=== PATIENT | female | born 2005 | race Caucasian/White ===

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

== ENCOUNTER → 2024-09-24 | Outpatient (CLI) | payer OTHER | END | disposition home or self-care (01) | LOC: LABWHC1 13:10 | PROVIDERS: ATTEND Obstetrics & Gynecology | DX: O20.0 Threatened abortion (principal); Z3A.00 Weeks of gestation of pregnancy not specified | CPT/HCPCS: 36415; 84702 ==

== ENCOUNTER 2024-10-25 21:28 | Emergency (ER) | payer OTHER ==
--- NOTE | 2024-10-25 22:03 | ED ---
Abdominal Pain HPI - General Source: patient, RN notes reviewed Mode of arrival: ambulatory Limitations: no limitations - History of Present Illness MD Complaint: abdominal pain Onset/Timin -: days(s) Location: LLQ, RLQ Radiation: none Severity scale (1-10): 7 Consistency: intermittent Worsens With: bowel movement Associated Symptoms: nausea, hematochezia <Janes Frost - Last Filed: 10/25/24 23:57> <Brittany Jean-Baptiste - Last Filed: 10/26/24 02:32> - General Chief Complaint: Abdominal Pain Stated Complaint: 12 weeks preg,bloody stool,abd Pain Time Seen by Provider: 10/25/24 21:42 - History of Present Illness Initial Comments: This is a G2, , 12-week , 19-year-old female presenting for abdominal pain with blood in the stool starting earlier today. Patient states she began having lower abdominal pain, noticing bright red blood in her stool afterwards. Patient states that this has been recurring all day with intermittent pain that worsens just prior to, during and immediately following the bowel movements. Patient denies history of similar symptoms in the past endorses associated nausea. Denies complications with first . Endorses migraines, syncopal episodes and momentary periods of vision loss during this . Denies fever, chills, chest pain, dyspnea, vomiting, melena, vaginal bleeding/discharge, dysuria, hematuria. (Janes Frost) - Related Data Previous Rx's Medication Instructions Recorded Xbp-Ppur-Vcmqg Acid 1 each PO DAILY #30 cap 11/23/21 [-U Capsule] Acetaminophen Tab [Tylenol] 650 mg PO Q6H PRN #30 tab 04/25/22 Ibuprofen [Motrin] 600 mg PO Q6HR PRN #30 tab 04/25/22 Allergies Allergy/AdvReac Type Severity Reaction Status Date / Time No Known Allergies Allergy Verified 10/25/24 21:33 Review of Systems ROS Other: All systems not noted in ROS Statement are negative. <Janes Frost - Last Filed: 10/25/24 23:57> ROS Other: All systems not noted in ROS Statement are negative. <Brittany Jean-Baptiste - Last Filed: 10/26/24 02:32> ROS Statement: Those systems with pertinent positive or pertinent negative responses have been documented in the HPI. Past Medical History Past Medical History: No Reported History History of Any Multi-Drug Resistant Organisms: None Reported Past Surgical History: No Surgical Hx Reported Past Anesthesia/Blood Transfusion Reactions: No Reported Reaction Past Psychological History: No Psychological Hx Reported Smoking Status: Never smoker Past Alcohol Use History: None Reported Past Drug Use History: None Reported - Past Family History Father Family Medical History: Hypertension <SantoshJanes Last Filed: 10/25/24 23:57> General Exam Limitations: no limitations General appearance: alert, in no apparent distress Head exam: Present: atraumatic, normocephalic, normal inspection Eye exam: Present: normal appearance, PERRL, EOMI. Absent: scleral icterus, conjunctival injection, periorbital swelling ENT exam: Present: normal exam, mucous membranes moist Neck exam: Present: normal inspection. Absent: tenderness, meningismus, lymphad enopathy Respiratory exam: Present: normal lung sounds bilaterally. Absent: respiratory distress, wheezes, rales, rhonchi, stridor Cardiovascular Exam: Present: regular rate, normal rhythm, normal heart sounds. Absent: systolic murmur, diastolic murmur, rubs, gallop, clicks GI/Abdominal exam: Present: soft, tenderness (Positive right adnexal, suprapubic and epigastric TTP without guarding.), normal bowel sounds. Absent: distended, guarding, rebound, rigid Extremities exam: Present: normal inspection, full ROM, normal capillary refill. Absent: tenderness, pedal edema, joint swelling, calf tenderness Back exam: Present: normal inspection Neurological exam: Present: alert, oriented X3, CN II-XII intact Psychiatric exam: Present: normal affect, normal mood Skin exam: Present: warm, dry, intact, normal color. Absent: rash <Henrry Frostling - Last Filed: 10/25/24 23:57> Course Vital Signs 10/25/24 10/26/24 21:30 01:57 Temperature 97.6 F 98.4 F Pulse Rate 71 53 L Respiratory 18 16 Rate Blood Pressure 137/87 111/74 O2 Sat by Pulse 100 100 Oximetry Medical Decision Making - Lab Data Result diagrams: 10/25/24 23:12 <Henrry Frostling Last Filed: 10/25/24 23:57> - Lab Data Result diagrams: 10/25/24 23:12 10/25/24 23:12 <Brittany Jean-Baptiste - Last Filed: 10/26/24 02:32> - Medical Decision Making Was pt. sent in by a medical professional or institution ([facility] Coffey, [employer] FURNACE OPERATOR, urgent care, hospital, or [place] health care facility...) When possible be specific @ -[No] Did you speak to anyone other than the patient for history (EMS, parent, family, police, friend...)? What history was obtained from this source @ -[No] Did you review nursing and triage notes (agree or disagree)? Why? @ -[I reviewed and agree with nursing and triage notes] Were old charts reviewed (outside hosp., previous admission, EMS record, old EKG, old radiological studies, urgent care reports/EKG's, [place] health care facility records)? Report findings @ -[No old charts were reviewed] Differential Diagnosis (chest pain, altered mental status, abdominal pain women, abdominal pain men, vaginal bleeding, weakness, fever, dyspnea, syncope, headache, dizziness, GI bleed, back pain, seizure, CVA, palpatations, mental health, musculoskeletal)? @ -Differential Abdominal Pain Women: Appendicitis, Cholecystitis, diverticulosis, ischemic bowel, pancreatitis, hepa titis, UTI, gastroenteritis, AAA, incarcerated hernia, bowel obstruction, constipation, inflammatory bowel, hepatitis, peptic ulcer disease, splenic infarction, perforated viscus, vulvitis, ovarian torsion, PID, kidney stone, placenta abruption, this is not meant to be an all-inclusive list EKG interpreted by me (3pts min.). @ -Not done X-rays interpreted by me (1pt min.). @ -[None done] CT interpreted by me (1pt min.). @ -[None done] U/S interpreted by me (1pt. min.). @ - ultrasound results pending What testing was considered but not performed or refused? (CT, X-rays, U/S, labs)? Why? @ -[None] What meds were considered but not given or refused? Why? @ -[None] Did you discuss the management of the patient with other professionals (professionals i.e. [facility] Coffey, E[employer] FURNACE OPERATOR, lab, RT, psych nurse, social sciences research scientist, transportation job titles, teacher, radio division officer, continuous pillowcase cutter)? Give summary @ -[No] Was smoking cessation discussed for >3mins.? @ -[No] Was critical care preformed (if so, how long)? @ -[No] Were there social determinants of health that impacted care today? How? (Homelessness, low income, unemployed, alcoholism, drug addiction, transportation, low edu. Level, literacy, decrease access to med. care, penitentiary, rehab)? @ -[No] Was there de-escalation of care discussed even if they declined (Discuss DNR or withdrawal of care, Hospice)? DNR status @ -[No] What co-morbidities impacted this encounter? (DM, HTN, Smoking, COPD, CAD, Cancer, CVA, ARF, Chemo, Hep., AIDS, mental health diagnosis, sleep apnea, morbid obesity)? @ -[None] Was patient admitted / discharged? Hospital course, mention meds given and route, prescriptions, significant lab abnormalities, going to OR and other pertinent info. @ -[hospital course] Undiagnosed new problem with uncertain prognosis? @ -[No] Drug Therapy requiring intensive monitoring for toxicity (Heparin, Nitro, Insulin, Cardizem)? @ -[No] Were any procedures done? @ -[No] Diagnosis/symptom? @ -[default] Acute, or Chronic, or Acute on Chronic? @ -Acute Uncomplicated (without systemic symptoms) or Complicated (systemic symptoms)? @ -Complicated Side effects of treatment? @ -[No] Exacerbation, Progression, or Severe Exacerbation? @ -[No] Poses a threat to life or bodily function? How? (Chest pain, [place], [place], pneumonia, PE, COPD, DKA, ARF, appy, cholecystitis, CVA, Diverticulitis, Homicidal, Suicidal, threat to staff... and all critical care pts) @ -[No] (Janes Frost) Was patient admitted / discharged? Hospital course, mention meds given and route, prescriptions, significant lab abnormalities, going to OR and other perti nent info. @Discharged-Patient discussed with and signed out to myself by outgoing BIBI. Briefly she is a 19-year-old female, 12 weeks presenting for bright red blood per rectum. Vital signs stable on arrival. Hemoglobin is stable and within normal limits. Ultrasound pending. Ultrasound shows 12-week 1 day old fetus, heart rate 160, noted an anechoic area along with placenta that is a possible placental fonseca. Updated patient to today's findings, discussed importance following up with her tubing drier regarding this, additionally discussed the importance of increased fiber intake, fluid intake and Dulcolax as needed for stool softener, due to suspected constipation causing hemorrhoids and rectal bleeding. Patient was instructed to be on pelvic rest and to return to the ER immediately should she experience any vaginal bleeding. Pt verbalized understanding and was discharged in good condition. In my medical judgment there is currently no evidence of an immediate life- threatening or surgical condition. Discharge is therefore indicated at this time. Discharge treatment instructions, follow up instructions, and appropriate emergency department return precautions were discussed with the patient and/or medical decision maker. Patient and/or medical decision maker expressed understanding of and agreed with the treatment plan, follow up instructions, and emergency department return precaution. All patient's and/or medical decision maker's questions were answered. The patient was instructed to return to the ED for any changes in symptoms, persistent symptoms, inability to obtain proper follow-up or for any further concerns. Patient received verbal and written instructions for this condition. Undiagnosed new problem with uncertain prognosis? @ -No Drug Therapy requiring intensive monitoring for toxicity (Heparin, Nitro, Insulin, Cardizem)? @ -No Were any procedures done? @ -No Diagnosis/symptom? @Hematochezia Acute, or Chronic, or Acute on Chronic? @ -Acute Uncomplicated (without systemic symptoms) or Complicated (systemic symptoms)? @ -Complicated Side effects of treatment? @ -No Exacerbation, Progression, or Severe Exacerbation? @ -No Poses a threat to life or bodily function? How? (Chest pain, [place], [place], pneumonia, PE, COPD, DKA, ARF, appy, cholecystitis, CVA, Diverticulitis, Homicidal, Suicidal, threat to staff... and all critical care pts) @ -No (,Brittany) - Lab Data Lab Results 10/25/24 10/25/24 10/25/24 Range/Units 23:12 23:12 23:12 WBC 9.70 (4.50-10.00) 10*3/uL RBC 4.79 (4.10-5.20) 10*6/uL Hgb 14.7 (12.0-15.0) g/dL Hct 41.4 (37.2-46.3) % MCV 86.4 (80.0-97.0) fL MCH 30.7 (27.0-32.0) pg MCHC 35.5 (32.0-37.0) g/dL Plt Count 185 (140-440) 10*3/uL MPV 12.8 H (9.5-12.2) fL Immature Gran % (Auto) 0.3 % Neutrophils % 61.1 % Lymphocytes % 29.0 % Monocytes % 8.6 % Eosinophils % 0.5 % Basophils % 0.5 % Immature Gran # 0.03 (0.00-0.04) 10*3/uL Neutrophils # 5.93 (1.80-7.70) 10*3/uL Lymphocytes # 2.81 (0.90-5.00) 10*3/uL Monocytes # 0.83 (0.20-1.00) 10*3/uL Eosinophils # 0.05 (0.04-0.35) 10*3/uL Basophils # 0.05 (0.00-0.10) 10*3/uL Sodium 135 L (137-145) mmol/L Potassium 3.8 (3.5-5.1) mmol/L Chloride 102 (98-107) mmol/L Carbon Dioxide 22 (22-30) mmol/L Anion Gap 11 mmol/L BUN 5 L (7-17) mg/dL Creatinine 0.54 (0.52-1.04) mg/dL Est GFR (CKD-EPI)AfAm >90 (>60 ml/min/1.73 sqM) Est GFR (CKD-EPI)NonAf >90 (>60 ml/min/1.73 sqM) Glucose 85 (74-99) mg/dL Calcium 9.6 (8.4-10.2) mg/dL Total Bilirubin 0.5 (0.2-1.3) mg/dL AST 19 (14-36) U/L ALT 12 (4-34) U/L Alkaline Phosphatase 41 (38-126) U/L Total Protein 6.6 (6.3-8.2) g/dL Albumin 4.2 (3.5-5.0) g/dL Lipase 91 (23-300) U/L HCG, Quant 73744.3 mIU/mL Urine Color Urine Appearance (Clear) Urine pH (5.0-8.0) Ur Specific [place] (1.001-1.035) Urine Protein (Negative) Urine Glucose (UA) (Negative) Urine Ketones (Negative) Urine Blood (Negative) Urine Nitrite (Negative) Urine Bilirubin (Negative) Urine Urobilinogen (<2.0) mg/dL Ur Leukocyte Esterase (Negative) Stool Occult Blood (Negative) Blood Type O Positive Blood Type Recheck O Pos Bld Type Recheck Status No 10/25/24 10/26/24 Range/Units 23:12 00:15 WBC (4.50-10.00) 10*3/uL RBC (4.10-5.20) 10*6/uL Hgb (12.0-15.0) g/dL Hct (37.2-46.3) % MCV (80.0-97.0) fL MCH (27.0-32.0) pg MCHC (32.0-37.0) g/dL Plt Count (140-440) 10*3/uL MPV (9.5-12.2) fL Immature Gran % (Auto) % Neutrophils % % Lymphocytes % % Monocytes % % Eosinophils % % Basophils % % Immature Gran # (0.00-0.04) 10*3/uL Neutrophils # (1.80-7.70) 10*3/uL Lymphocytes # (0.90-5.00) 10*3/uL Monocytes # (0.20-1.00) 10*3/uL Eosinophils # (0.04-0.35) 10*3/uL Basophils # (0.00-0.10) 10*3/uL Sodium (137-145) mmol/L Potassium (3.5-5.1) mmol/L Chloride (98-107) mmol/L Carbon Dioxide (22-30) mmol/L Anion Gap mmol/L BUN (7-17) mg/dL Creatinine (0.52-1.04) mg/dL Est GFR (CKD-EPI)AfAm (>60 ml/min/1.73 sqM) Est GFR (CKD-EPI)NonAf (>60 ml/min/1.73 sqM) Glucose (74-99) mg/dL Calcium (8.4-10.2) mg/dL Total Bilirubin (0.2-1.3) mg/dL AST (14-36) U/L ALT (4-34) U/L Alkaline Phosphatase (38-126) U/L Total Protein (6.3-8.2) g/dL Albumin (3.5-5.0) g/dL Lipase (23-300) U/L HCG, Quant mIU/mL Urine Color Colorless Urine Appearance Clear (Clear) Urine pH 6.5 (5.0-8.0) Ur Specific [place] 1.010 (1.001-1.035) Urine Protein Negative (Negative) Urine Glucose (UA) Negative (Negative) Urine Ketones Negative (Negative) Urine Blood Negative (Negative) Urine Nitrite Negative (Negative) Urine Bilirubin Negative (Negative) Urine Urobilinogen <2.0 (<2.0) mg/dL Ur Leukocyte Esterase Negative (Negative) Stool Occult Blood Positive H (Negative) Blood Type Blood Type Recheck Bld Type Recheck Status Disposition <Janes Frost - Last Filed: 10/25/24 23:57> Is patient prescribed a controlled substance at d/c from ED?: No <Brittany Jean-Baptiste - Last Filed: 10/26/24 02:32> Clinical Impression: Hematochezia Disposition: HOME SELF-CARE Condition: Good Instructions (If sedation given, give patient instructions): Constipation (ED), Hemorrhoids (ED) Additional Instructions: Every disease is a spectrum and a small chance still exists that a serious condition could develop, for this reason, please monitor yourself closely for new, changing or worsening symptoms, symptoms that persist beyond 48 hours, multiple bloody stools in one day, bleeding greater than 1-2 tbsp with bowel movement or when attempting to have bowel movement, signs of excessive blood loss such as lightheadedness, dizziness or shortness of breath, fever, inability to tolerate/keep down fluids or your medications, inability to follow up with outpatient providers as instructed and should you experience these symptoms or should you have any further concerns for your wellbeing please return to the ED or call 911 immediately. Please maintain a high-fiber diet and drink plenty of fluids. You may trial stool softener like Colace/docusate daily to help achieve daily soft stools the consistency of wet sand. Please follow-up with your tubing drier for additional options for constipation that you can take safely and regularly. A possible "placental fonseca" was noted on your ultrasound, please follow up with your OB[facility] within 1-3 days for recheck, possible repeat ultrasound if your OB feels is indicated. Please return to the ED immediately should you notice vag inal bleeding. Please be on pelvic rest (nothing inserted into the vagina, such as intercourse or douching) until cleared by your PCP PLEASE call your primary care physician and OB as soon as possible to arrange / discuss plan for followup appointment. Appointment in the next 1-3 days is strongly encouraged if possible. PLEASE let us know here before you leave if there is anything further we can do to be of any assistance. Take care and feel Better! Referrals: Abe Moore, [Primary Care Provider] - 1-2 days
[2024-10-25] MEDS: SODIUM CHLORIDE 0.9% 1,000 ML IV STA (23:08)
[2024-10-25 23:31] LABS: Basophils # (A) 0.05 10*3/uL (0.00-0.10); Basophils % (A) 0.5 %; Eosinophils # (A) 0.05 10*3/uL (0.04-0.35); Eosinophils % (A) 0.5 %; HCT 41.4 % (37.2-46.3); HGB 14.7 g/dL (12.0-15.0); Lymphocytes # (A) 2.81 10*3/uL (0.90-5.00); Lymphocytes % (A) 29.0 %; MCH 30.7 pg (27.0-32.0); MCHC 35.5 g/dL (32.0-37.0); MCV 86.4 fL (80.0-97.0); Monocytes # (A) 0.83 10*3/uL (0.20-1.00); Monocytes % (A) 8.6 %; Neutrophils # (A) 5.93 10*3/uL (1.80-7.70); Neutrophils % (A) 61.1 %; Platelet Count 185 10*3/uL (140-440); RBC 4.79 10*6/uL (4.10-5.20); RDW 11.5 % (11.5-14.5); WBC 9.70 10*3/uL (4.50-10.00)
[2024-10-25 23:59] LABS: Bilirubin,Urine Negative (Negative); Blood,Urine Negative (Negative); Color,Urine Colorless; Glucose,Urine (UA) Negative (Negative); Ketones,Urine Negative (Negative); Leukocyte Esterase,Urine Negative (Negative); Nitrite,Urine Negative (Negative); PH, Urine 6.5 (5.0-8.0); Protein,Urine Negative (Negative); Specific Gravity,Urine 1.010 (1.001-1.035); Urobilinogen,Urine <2.0 mg/dL (<2.0)
[2024-10-26 00:07] LABS: ALT 12 U/L (4-34); AST 19 U/L (14-36); African American GFR (CKD) >90 (>60 ml/min/1.73 sqM); Albumin 4.2 g/dL (3.5-5.0); Alkaline Phosphatase 41 U/L (38-126); Anion Gap 11 mmol/L; Blood Urea Nitrogen 5 mg/dL (7-17); Calcium 9.6 mg/dL (8.4-10.2); Carbon Dioxide 22 mmol/L (22-30); Chloride 102 mmol/L (98-107); Glucose 85 mg/dL (74-99); Lipase 91 U/L (23-300); Non-African American GFR(CKD) >90 (>60 ml/min/1.73 sqM); Potassium 3.8 mmol/L (3.5-5.1); Sodium 135 mmol/L (137-145); Total Protein 6.6 g/dL (6.3-8.2)
--- NOTE | 2024-10-26 01:37 | US ---
Exam: US OB 1st TRIMESTER DATE OF EXAM: 10/25/2024 10:56 PM COMPARISON: 09/20/2024 CLINICAL INDICATION: Female, 19 years old with history of Lower abdominal pain; patient states lower abd pain and blood in stool TECHNIQUE: Transabdominal (TA) with grayscale and color Doppler imaging including first trimester . 46 images FINDINGS: EXAM MEASUREMENTS: GESTATIONAL AGE / DATING Physician Established: (12 weeks/2 days) EDC: 05/07/2025 Dates by First Scan: (12 weeks/0 days) EDC: 05/09/2025 Dates by Current Scan for: (12 weeks/1 days) EDC: 05/08/2025 MATERNAL ANATOMY Uterus: 11.8 x 7.2 x 8.2 Right Ovary: 2.7 x 1.9 x 1.4cm Left Ovary: 1.8 x 1.8 x 0.8cm. Post CDS / Adnexa: wnl Presence of free fluid: not seen Presence of corpus luteal cyst: not seen There is a 2.4 x 1.5 x 1.5cm anechoic area seen posterior to the placenta, without internal Doppler flow GESTATION / SURVEY CRL: 55.39mm (12 weeks/1 days) Gestational Sac morphology: Normal Yolk Sac (normal less than 6mm): not visualized Cardiac Activity/Heart Rate: 160 bpm Rhythm: Normal IUP: Viable IUP Impression: Single live intrauterine with an estimated gestational age of 12 weeks 1 day per crown-rump length measurement. Estimated due date is 05/08/2025. 2.4 x 1.5 x 1.5cm anechoic area seen posterior to the placenta is likely placental fonseca and less likely hemorrhage. Other much less likely etiologies can not be excluded.
[2024-10-26 02:02] VITALS: BP 111/74; PULSE 53; RESP 16; TEMP 98.4
[2024-10-26 02:05] LABS: HCG,Quantitative Serum 98025.3 mIU/mL
== END 2024-10-26 01:57 | disposition home or self-care (01) ==
LOC: EC 21:28
DX: O99.611 Diseases of the digestive system complicating pregnancy, first trimester (principal); K92.1 Melena; Z3A.12 12 weeks gestation of pregnancy
CPT/HCPCS: 36415; 76801; 80053; 81003; 82272; 83690; 84702; 85025; 86900; 86901; 96360; 99284